=== PATIENT | male | born 1945 | race Hispanic/Latino ===

== ENCOUNTER 2021-08-08 11:10 | Inpatient (IN) | payer MEDICARE ==
[2021-08-08] VITALS (16 sets, daily range): BP systolic 119–166; BP diastolic 41–88
[~2021-08-08] VITALS: Ht 167.6 cm; Wt 57.7 kg
[~2021-08-08 11:10] MED LIST: ACET-2247 PO; AMLO-258 PO; ASCO500T10 PO; ASPI-1197 PO; ATOR20TA65 PO; CARV25TA PO; CILO100T PO; CLOP75TA32 PO; CYAN100099 PO; CYCL5.5D3 OU; DOXA4TAB3 PO; ESCI5TAB PO; FOLI0.8T22 PO; GLUC1VIA14 IJ; HUMULIN R SQ; HYDR-4154 PO; LINA5TAB PO; LOPE2CAP PO; LOSA100T58 PO; MULT-1367 PO; NITR0.4T50 SL; ONDA4TAB4 PO; PEPCID PO; PETR113O TP; POLY119P17 PO; PROT946L PO; SENN8.6T20 PO; SEVE800T27 PO; ZINC57OI4 TP
[2021-08-08] MEDS ORDERED: DEXTROSE 50%-WATER 50 ML DISP.SYRIN IV ONE (11:12)
[2021-08-08] MEDS ORDERED: INSULIN HUMULIN R 100 UNIT/ML 3ML ONE (11:13)
[2021-08-08 11:28] LABS: BASOPHILS % (AUTO) 1.1 % (0.0-5.0); EOSINOPHILS % (AUTO) 2.5 % (0.0-8.0); LYMPHOCYTES % (AUTO) 13.9 % (21.0-51.0); MEAN CORPUSCULAR HEMOGLOBIN 27.8 pg (27.0-33.0); MEAN CORPUSCULAR HGB CONC 30.3 g/dL (32.0-36.0); MEAN CORPUSCULAR VOLUME 91.7 fL (79-99); NEUTROPHILS % (AUTO) 76.1 % (40.0-77.0); PLATELET COUNT (AUTO) 69 K/uL (130-400); RED BLOOD CELL COUNT(AUTO) 3.49 MIL/uL (4.50-6.20); RED CELL DISTRIBUTION WIDTH 15.4 % (11.0-15.5); WHITE BLOOD COUNT (AUTO) 2.8 K/uL (4.8-10.8)
[2021-08-08] MEDS ORDERED: CACL 1GM SYG IVP SCH (11:30)
[2021-08-08 11:50] LABS: ALBUMIN 2.6 g/dL (3.5-5.0); BILIRUBIN,TOTAL 0.4 mg/dL (0.2-1.0); TOTAL PROTEIN, SERUM 6.8 g/dL (6.0-8.3)
[2021-08-08 11:53] LABS: CREATININE 16.5 mg/dL (0.5-1.5)
[2021-08-08 12:34] LABS: BASOPHILS % (MANUAL) 1 % (0-2); EOSINOPHILS % (MANUAL) 1 % (1-6); LYMPHOCYTES % (MANUAL) 19 % (22-44); MAN.DIFF COMMENT-IMPRESSION MANUAL DIFFERENTIAL; PLATELET MORPHOLOGY COMMENT DECREASED; SEGMENTED NEUTROPHILS % 79 % (40-70)
[2021-08-08] MEDS ORDERED: ACETAMINOPHEN 325 MG TAB PO PRN ×3 (16:30→22:00)
[2021-08-08] MEDS ORDERED: DEXTROSE 50%-WATER 50 ML DISP.SYRIN IV PRN (16:30)
[2021-08-08] MEDS ORDERED: GLUCAGON 1MG KIT 1 MG ML IM PRN ×2 (16:30→23:00)
[2021-08-08] MEDS: INSULIN R PO SS1 SQ SCH ×2 (16:30→20:07)
[2021-08-08] MEDS ORDERED: ONDANSETRON 4MG INJ IVP PRN (16:30)
[2021-08-08] MEDS: 0.9%NACL 1000ML 1,000 ML IV PRN (17:13)
[2021-08-08] MEDS ORDERED: CETI10TA57 PO (19:54)
[2021-08-08] MEDS ORDERED: AEC81 PO (19:54)
[2021-08-08] MEDS ORDERED: PANT20TA18 PO (19:54)
[2021-08-08] MEDS ORDERED: [UNRECOGNIZED DRUG - CODE] IR (19:54)
[2021-08-08] MEDS ORDERED: ACET325T51 PO (19:54)
[2021-08-08] MEDS ORDERED: FOLI0.8T22 PO (19:54)
[2021-08-08 20:08] LABS: POTASSIUM 4.9 mmol/L (3.5-5.1)
[2021-08-08 20:17] LABS: CREATININE 8.4 mg/dL (0.5-1.5)
[2021-08-08] MEDS ORDERED: NACL 23.4% (4MEQ/ML) 30ML VIAL 154 MEQ in DEXTROSE 10%-WATER 961.5 ML IV STA (21:15)
[2021-08-08 21:52] LABS: ABG BASE EXCESS -2.5 mmol/L (-2.0-3.0); ABG HCO3 21.2 mmol/L (21.0-28.0); ABG OXYGEN SATURATION 94.9 % (95.0-99.0); ABG PCO2 34 mmHg (35-48)
[2021-08-08] MEDS ORDERED: ASPIRIN 325MG TAB PO SCH (21:54)
[2021-08-08] MEDS ORDERED: NITROGLYCERIN 0.4 MG SL TAB SL PRN (22:00)
[2021-08-08] MEDS ORDERED: LACTULOSE 20 GM/30 ML UDCUP PO PRN (22:00)
[2021-08-08] MEDS ORDERED: ONDANSETRON 4MG INJ IV PRN (22:00)
[2021-08-08] MEDS ORDERED: GUAIFENESIN-DM 200/20 MG 10 ML PO PRN (22:00)
[2021-08-08] MEDS ORDERED: MAG/ALUM/SIMETH 30 ML UDCUP PO PRN (22:00)
[2021-08-08] MEDS ORDERED: IPRATROPIUM/ALBUTEROL SULFATE 3 ML SOLUTION IH PRN (22:00)
[2021-08-09] VITALS (8 sets, daily range): BP systolic 129–180; BP diastolic 47–94
[2021-08-09 04:26] LABS: BASOPHILS % (AUTO) 0.7 % (0.0-5.0); EOSINOPHILS % (AUTO) 1.8 % (0.0-8.0); HEMATOCRIT 30.4 % (42-54); LYMPHOCYTES % (AUTO) 10.3 % (21.0-51.0); MEAN CORPUSCULAR HEMOGLOBIN 27.6 pg (27.0-33.0); MEAN CORPUSCULAR HGB CONC 31.3 g/dL (32.0-36.0); MEAN CORPUSCULAR VOLUME 88.4 fL (79-99); NEUTROPHILS % (AUTO) 79.8 % (40.0-77.0); PLATELET COUNT (AUTO) 72 K/uL (130-400); RED BLOOD CELL COUNT(AUTO) 3.44 MIL/uL (4.50-6.20); RED CELL DISTRIBUTION WIDTH 14.8 % (11.0-15.5); WHITE BLOOD COUNT (AUTO) 2.7 K/uL (4.8-10.8)
[2021-08-09 05:15] LABS: AMMONIA 22 umol/L (11-32)
[2021-08-09 05:32] LABS: ALANINE AMINOTRANSFERASE 7 U/L (12-78); ALBUMIN 2.5 g/dL (3.5-5.0); ASPARTATE AMINOTRANSFERASE 24 U/L (10-37); BILIRUBIN,DIRECT 0.2 mg/dL (0.0-0.3); BILIRUBIN,TOTAL 0.4 mg/dL (0.2-1.0); CARBON DIOXIDE 22 mmol/L (21-32); CHLORIDE 101 mmol/L (101-111); GLOMERULAR FILTR. RATE CALC 6 mL/min (>60); GLUCOSE,RANDOM 147 mg/dL (70-105); PHOSPHORUS 4.3 mg/dL (2.5-4.9); POTASSIUM 5.7 mmol/L (3.5-5.1); SODIUM SERUM 136 mmol/L (136-145); THYROID STIMULATING HORMONE 4.03 uIU/mL (0.36-3.74); TOTAL PROTEIN, SERUM 6.5 g/dL (6.0-8.3)
[2021-08-09] MEDS: INSULIN R PO SS1 SQ SCH ×3 (05:42→21:00)
[2021-08-09 06:05] LABS: CREATININE 9.2 mg/dL (0.5-1.5); UREA NITROGEN, BLOOD 83 mg/dL (7-18)
[2021-08-09] MEDS: ASPIRIN 81 MG EC TAB PO SCH (08:54)
[2021-08-09] MEDS: CETIRIZINE HCL 5 MG TABLET PO SCH (08:55)
[2021-08-09] MEDS: PANTOPRAZOLE 40 MG/VIAL IVP SCH ×2 (08:55→20:30)
[2021-08-09] MEDS: HYDRALAZINE 20MG/ML VIAL IV PRN (08:56)
[2021-08-09] MEDS: Vitamin B Complex/Vit C/Folic Acid PO SCH (12:58)
[2021-08-09] MEDS ORDERED: KAYEXALATE 15GM/60ML PO ONE (13:30)
[2021-08-09] MEDS ORDERED: SODIUM CHLORIDE 3% FOR INHALATION 4 ML/AMP VIAL.NEB IH ONE ×2 (14:14→18:45)
[2021-08-09] MEDS ORDERED: KAYEXALATE 15GM/60ML ONE (15:21)
[2021-08-09] MEDS: ENOXAPARIN SODIUM 30 MG/0.3 ML SQ SCH (15:26)
[2021-08-09] MEDS: 0.9% NACL 250ML IVPB SCH (18:30)
[2021-08-09] MEDS: IPRATROPIUM/ALBUTEROL SULFATE 3 ML SOLUTION IH SCH ×2 (18:30→23:44)
[2021-08-09] MEDS ORDERED: ZOSYN 3.375GM+NS 50ML 3.38 GM in 0.9%NACL 50ML 50 ML IV SCH (18:30)
[2021-08-09] MEDS ORDERED: AZITHROMYCIN 500MG+NS 250ML 250 ML IV ONE (19:52)
[2021-08-09] MEDS: AZITHROMYCIN 500MG VIAL IVPB SCH (20:29)
[2021-08-09] MEDS: 0.9%NACL 50ML 50 ML IV SCH (20:30)
[2021-08-09] MEDS: ZOSYN 3.375GM +NS 50ML IV SCH (20:30)
[2021-08-09] MEDS: ATORVASTATIN 20 MG TABLET PO SCH (20:31)
[2021-08-10] VITALS (21 sets, daily range): BP systolic 132–180; BP diastolic 47–82
[2021-08-10 05:46] LABS: ALBUMIN 2.4 g/dL (3.5-5.0); BILIRUBIN,TOTAL 0.4 mg/dL (0.2-1.0); MAGNESIUM 2.8 mg/dL (1.80-2.40); PHOSPHORUS 4.8 mg/dL (2.5-4.9); TOTAL PROTEIN, SERUM 6.3 g/dL (6.0-8.3)
[2021-08-10] MEDS: INSULIN R PO SS1 SQ SCH ×4 (05:48→20:39)
[2021-08-10 05:53] LABS: CREATININE 10.2 mg/dL (0.5-1.5)
[2021-08-10 06:07] LABS: BASOPHILS % (AUTO) 0.7 % (0.0-5.0); EOSINOPHILS % (AUTO) 2.8 % (0.0-8.0); HEMATOCRIT 29.5 % (42-54); LYMPHOCYTES % (AUTO) 20.6 % (21.0-51.0); MEAN CORPUSCULAR HEMOGLOBIN 27.7 pg (27.0-33.0); MEAN CORPUSCULAR HGB CONC 30.8 g/dL (32.0-36.0); MEAN CORPUSCULAR VOLUME 89.9 fL (79-99); MONOCYTES % (AUTO) 8.9 % (3.0-13.0); NEUTROPHILS % (AUTO) 66.6 % (40.0-77.0); PLATELET COUNT (AUTO) 73 K/uL (130-400); RED BLOOD CELL COUNT(AUTO) 3.28 MIL/uL (4.50-6.20); RED CELL DISTRIBUTION WIDTH 15.3 % (11.0-15.5); WHITE BLOOD COUNT (AUTO) 2.8 K/uL (4.8-10.8)
[2021-08-10] MEDS: HYDRALAZINE 20MG/ML VIAL IV PRN ×2 (06:08→11:22)
[2021-08-10] MEDS: IPRATROPIUM/ALBUTEROL SULFATE 3 ML SOLUTION IH SCH ×4 (06:39→23:32)
[2021-08-10] MEDS ORDERED: SODIUM CHLORIDE 3% FOR INHALATION 4 ML/AMP VIAL.NEB IH ONE (06:41)
[2021-08-10] MEDS: 0.9%NACL 1000ML 1,000 ML IV PRN ×2 (07:40→07:41)
[2021-08-10 07:50] LABS: EOSINOPHILS % (MANUAL) 2 % (1-6); LYMPHOCYTES % (MANUAL) 22 % (22-44); MAN.DIFF COMMENT-IMPRESSION MANUAL DIFFERENTIAL; MONOCYTES % (MANUAL) 10 % (2-9); SEGMENTED NEUTROPHILS % 66 % (40-70)
[2021-08-10 07:51] LABS: PLATELET MORPHOLOGY COMMENT DECREASED
[2021-08-10 08:15] LABS: HEPATITIS Bs ANTIGEN SCREEN P Negative (Negative)
[2021-08-10] MEDS: ZOSYN 3.375GM +NS 50ML IV SCH ×2 (08:29→20:37)
[2021-08-10] MEDS: PANTOPRAZOLE 40 MG/VIAL IVP SCH ×2 (08:30→20:37)
[2021-08-10] MEDS: ASPIRIN 81 MG EC TAB PO SCH (08:30)
[2021-08-10] MEDS: CETIRIZINE HCL 5 MG TABLET PO SCH (08:30)
[2021-08-10] MEDS: 0.9%NACL 50ML 50 ML IV SCH ×2 (08:30→20:37)
[2021-08-10] MEDS: Vitamin B Complex/Vit C/Folic Acid PO SCH (08:30)
[2021-08-10] MEDS: ENOXAPARIN SODIUM 30 MG/0.3 ML SQ SCH (08:34)
[2021-08-10] MEDS ORDERED: Vitamin B Complex/Vit C/Folic Acid PO SCH (09:00)
[2021-08-10] MEDS ORDERED: AZITHROMYCIN 500MG+NS 250ML 250 ML IV ONE (18:57)
[2021-08-10] MEDS: AZITHROMYCIN 500MG VIAL IVPB SCH (19:13)
[2021-08-10] MEDS: ATORVASTATIN 20 MG TABLET PO SCH (20:37)
[2021-08-11] VITALS (7 sets, daily range): BP systolic 119–176; BP diastolic 36–66
[2021-08-11] MEDS: DEXTROSE 50%-WATER 50 ML DISP.SYRIN IV PRN ×2 (00:57→01:37)
[2021-08-11 05:40] LABS: HEMATOCRIT 31.8 % (42-54); MEAN CORPUSCULAR HEMOGLOBIN 28.2 pg (27.0-33.0); MEAN CORPUSCULAR HGB CONC 30.8 g/dL (32.0-36.0); MEAN CORPUSCULAR VOLUME 91.4 fL (79-99); RED BLOOD CELL COUNT(AUTO) 3.48 MIL/uL (4.50-6.20); RED CELL DISTRIBUTION WIDTH 15.2 % (11.0-15.5); WHITE BLOOD COUNT (AUTO) 3.3 K/uL (4.8-10.8)
[2021-08-11 05:57] LABS: CREATININE 7.3 mg/dL (0.5-1.5); POTASSIUM 4.6 mmol/L (3.5-5.1)
[2021-08-11] MEDS: IPRATROPIUM/ALBUTEROL SULFATE 3 ML SOLUTION IH SCH ×4 (06:24→23:36)
[2021-08-11] MEDS: INSULIN R PO SS1 SQ SCH ×4 (07:30→21:00)
[2021-08-11] MEDS: Vitamin B Complex/Vit C/Folic Acid PO SCH (08:52)
[2021-08-11] MEDS: ZOSYN 3.375GM +NS 50ML IV SCH ×2 (08:52→21:48)
[2021-08-11] MEDS: 0.9%NACL 50ML 50 ML IV SCH ×2 (08:52→21:48)
[2021-08-11] MEDS: AMLODIPINE 5 MG TAB PO SCH (08:52)
[2021-08-11] MEDS: ASPIRIN 81 MG EC TAB PO SCH (08:52)
[2021-08-11] MEDS: CETIRIZINE HCL 5 MG TABLET PO SCH (08:52)
[2021-08-11] MEDS: PANTOPRAZOLE 40 MG/VIAL IVP SCH ×2 (08:52→21:48)
[2021-08-11] MEDS: ENOXAPARIN SODIUM 30 MG/0.3 ML SQ SCH (08:53)
[2021-08-11] MEDS ORDERED: AZITHROMYCIN 500MG+NS 250ML 250 ML IV ONE (18:04)
[2021-08-11] MEDS: 0.9% NACL 250ML IVPB SCH (18:10)
[2021-08-11] MEDS: AZITHROMYCIN 500MG VIAL IVPB SCH (18:30)
[2021-08-11] MEDS: ATORVASTATIN 20 MG TABLET PO SCH (21:48)
[2021-08-12 04:00] VITALS: BP 168/72
[2021-08-12 05:36] LABS: BASOPHILS % (AUTO) 0.6 % (0.0-5.0); EOSINOPHILS % (AUTO) 3.5 % (0.0-8.0); HEMATOCRIT 26.5 % (42-54); LYMPHOCYTES % (AUTO) 14.3 % (21.0-51.0); MEAN CORPUSCULAR HGB CONC 30.2 g/dL (32.0-36.0); MEAN CORPUSCULAR VOLUME 92.7 fL (79-99); MONOCYTES % (AUTO) 6.4 % (3.0-13.0); NEUTROPHILS % (AUTO) 74.6 % (40.0-77.0); PLATELET COUNT (AUTO) 60 K/uL (130-400); RED BLOOD CELL COUNT(AUTO) 2.86 MIL/uL (4.50-6.20); RED CELL DISTRIBUTION WIDTH 15.3 % (11.0-15.5); WHITE BLOOD COUNT (AUTO) 3.4 K/uL (4.8-10.8)
[2021-08-12] MEDS: INSULIN R PO SS1 SQ SCH ×4 (05:39→20:16)
[2021-08-12 06:47] LABS: CREATININE 8.2 mg/dL (0.5-1.5)
[2021-08-12] MEDS: IPRATROPIUM/ALBUTEROL SULFATE 3 ML SOLUTION IH SCH ×4 (07:12→23:17)
[2021-08-12 08:00] VITALS: BP 173/60
[2021-08-12] MEDS ORDERED: PANTOPRAZOLE 40 MG TAB DR ONE (08:28)
[2021-08-12] MEDS: PANTOPRAZOLE 40 MG/VIAL IVP SCH ×2 (08:32→20:15)
[2021-08-12] MEDS: ZOSYN 3.375GM +NS 50ML IV SCH ×2 (08:34→20:15)
[2021-08-12] MEDS: ASPIRIN 81 MG EC TAB PO SCH (08:35)
[2021-08-12] MEDS: CETIRIZINE HCL 5 MG TABLET PO SCH (08:35)
[2021-08-12] MEDS: 0.9%NACL 50ML 50 ML IV SCH ×2 (08:35→20:14)
[2021-08-12] MEDS: Vitamin B Complex/Vit C/Folic Acid PO SCH (08:35)
[2021-08-12] MEDS: AMLODIPINE 5 MG TAB PO SCH (08:35)
[2021-08-12] MEDS: ENOXAPARIN SODIUM 30 MG/0.3 ML SQ SCH (08:37)
[2021-08-12 11:51] VITALS: BP 167/56
[2021-08-12 16:00] VITALS: BP 165/54
[2021-08-12] MEDS ORDERED: AZITHROMYCIN 500MG+NS 250ML IV SCH (19:00)
[2021-08-12 19:55] VITALS: BP 157/54
[2021-08-12] MEDS: 0.9% NACL 250ML IVPB SCH ×2 (20:13→20:17)
[2021-08-12] MEDS: ATORVASTATIN 20 MG TABLET PO SCH (20:15)
[2021-08-13] VITALS (20 sets, daily range): BP systolic 134–167; BP diastolic 48–63
[2021-08-13 04:53] LABS: HEMATOCRIT 25.3 % (42-54); MEAN CORPUSCULAR HEMOGLOBIN 27.7 pg (27.0-33.0); MEAN CORPUSCULAR HGB CONC 30.4 g/dL (32.0-36.0); PLATELET COUNT (AUTO) 60 K/uL (130-400); RED BLOOD CELL COUNT(AUTO) 2.78 MIL/uL (4.50-6.20); RED CELL DISTRIBUTION WIDTH 15.3 % (11.0-15.5); WHITE BLOOD COUNT (AUTO) 3.8 K/uL (4.8-10.8)
[2021-08-13 05:13] LABS: POTASSIUM 5.5 mmol/L (3.5-5.1)
[2021-08-13] MEDS: HYDRALAZINE 20MG/ML VIAL IV PRN ×2 (05:19→23:45)
[2021-08-13 05:24] LABS: CREATININE 9.5 mg/dL (0.5-1.5)
[2021-08-13 05:55] LABS: BAND NEUTROPHILS % (MANUAL) 1 % (0-2); EOSINOPHILS % (MANUAL) 3 % (1-6); LYMPHOCYTES % (MANUAL) 10 % (22-44); MAN.DIFF COMMENT-IMPRESSION MANUAL DIFFERENTIAL; MONOCYTES % (MANUAL) 5 % (2-9); SEGMENTED NEUTROPHILS % 81 % (40-70)
[2021-08-13 05:56] LABS: PLATELET MORPHOLOGY COMMENT DECREASED
[2021-08-13] MEDS: INSULIN R PO SS1 SQ SCH ×4 (06:20→20:24)
[2021-08-13] MEDS: IPRATROPIUM/ALBUTEROL SULFATE 3 ML SOLUTION IH SCH ×4 (06:43→23:52)
[2021-08-13] MEDS: PANTOPRAZOLE 40 MG/VIAL IVP SCH ×2 (08:50→19:42)
[2021-08-13] MEDS: 0.9%NACL 50ML 50 ML IV SCH ×2 (08:50→19:42)
[2021-08-13] MEDS: ZOSYN 3.375GM +NS 50ML IV SCH ×2 (08:50→19:42)
[2021-08-13] MEDS: ASPIRIN 81 MG EC TAB PO SCH (08:51)
[2021-08-13] MEDS: CETIRIZINE HCL 5 MG TABLET PO SCH (08:52)
[2021-08-13] MEDS: Vitamin B Complex/Vit C/Folic Acid PO SCH (08:52)
[2021-08-13] MEDS: 0.9%NACL 1000ML 1,000 ML IV PRN (08:53)
[2021-08-13] MEDS: ENOXAPARIN SODIUM 30 MG/0.3 ML SQ SCH (08:53)
[2021-08-13] MEDS: ATORVASTATIN 20 MG TABLET PO SCH (19:42)
[2021-08-13] MEDS: DEXTROSE 50%-WATER 50 ML DISP.SYRIN IV PRN (20:24)
[2021-08-14 03:43] VITALS: BP 149/46
[2021-08-14 04:37] LABS: HEMATOCRIT 26.3 % (42-54); MEAN CORPUSCULAR HEMOGLOBIN 28.3 pg (27.0-33.0); MEAN CORPUSCULAR HGB CONC 30.4 g/dL (32.0-36.0); MEAN CORPUSCULAR VOLUME 92.9 fL (79-99); PLATELET COUNT (AUTO) 53 K/uL (130-400); RED BLOOD CELL COUNT(AUTO) 2.83 MIL/uL (4.50-6.20); RED CELL DISTRIBUTION WIDTH 15.4 % (11.0-15.5); WHITE BLOOD COUNT (AUTO) 3.4 K/uL (4.8-10.8)
[2021-08-14 04:57] LABS: CREATININE 5.8 mg/dL (0.5-1.5); POTASSIUM 4.5 mmol/L (3.5-5.1)
[2021-08-14] MEDS: INSULIN R PO SS1 SQ SCH ×2 (05:44→11:30)
[2021-08-14 05:46] LABS: EOSINOPHILS % (MANUAL) 2 % (1-6); LYMPHOCYTES % (MANUAL) 18 % (22-44); MAN.DIFF COMMENT-IMPRESSION MANUAL DIFFERENTIAL; MONOCYTES % (MANUAL) 5 % (2-9); PLATELET MORPHOLOGY COMMENT DECREASED; SEGMENTED NEUTROPHILS % 75 % (40-70)
[2021-08-14] MEDS: IPRATROPIUM/ALBUTEROL SULFATE 3 ML SOLUTION IH SCH ×2 (06:25→11:20)
[2021-08-14 08:03] VITALS: BP 129/76
[2021-08-14] MEDS: 0.9%NACL 50ML 50 ML IV SCH (10:18)
[2021-08-14] MEDS: ZOSYN 3.375GM +NS 50ML IV SCH (10:18)
[2021-08-14] MEDS: AMLODIPINE 5 MG TAB PO SCH (10:19)
[2021-08-14] MEDS: CETIRIZINE HCL 5 MG TABLET PO SCH (10:19)
[2021-08-14] MEDS: Vitamin B Complex/Vit C/Folic Acid PO SCH (10:20)
[2021-08-14] MEDS: ENOXAPARIN SODIUM 30 MG/0.3 ML SQ SCH (10:20)
[2021-08-14] MEDS: PANTOPRAZOLE 40 MG/VIAL IVP SCH (10:20)
[2021-08-14] MEDS: ASPIRIN 81 MG EC TAB PO SCH (10:20)
[2021-08-14 11:24] VITALS: BP 148/61
[2021-08-14] MEDS ORDERED: CALCIUM GLUC 1GM/10ML VIAL IV SCH (12:30)
[2021-08-14] MEDS ORDERED: CALCIUM GLUC 1GM 1 GM in 0.9%NACL 100ML 100 ML IV SCH (13:00)
[2021-08-14 15:43] VITALS: BP 145/55
== END 2021-08-14 16:05 | DRG 280 ==
LOC: EDH 11:10 → OBSVTOIN 14:10 → EDHIP 14:10 → 3BH 18:50 → 4CH 22:45
PROVIDERS: ADMIT Internal Medicine Infectious Disease; ATTEND Internal Medicine Infectious Disease
PROC: 5A1D70Z Performance of Urinary Filtration, Intermittent, Less than 6 Hours Per Day (ICD-10-PCS; principal; 2021-08-08)
PROC: 5A1D70Z Performance of Urinary Filtration, Intermittent, Less than 6 Hours Per Day (ICD-10-PCS; 2021-08-10)
PROC: 5A1D70Z Performance of Urinary Filtration, Intermittent, Less than 6 Hours Per Day (ICD-10-PCS; 2021-08-14)
DX: I21.9 Acute myocardial infarction, unspecified (principal); G93.41 Metabolic encephalopathy; N18.6 End stage renal disease; J18.9 Pneumonia, unspecified organism; I13.2 Hypertensive heart and chronic kidney disease with heart failure and with stage 5 chronic kidney disease, or end stage renal disease; D61.818 Other pancytopenia; D84.9 Immunodeficiency, unspecified; J98.11 Atelectasis; M86.9 Osteomyelitis, unspecified; E87.5 Hyperkalemia; Z99.2 Dependence on renal dialysis; I50.9 Heart failure, unspecified; D63.8 Anemia in other chronic diseases classified elsewhere; E11.22 Type 2 diabetes mellitus with diabetic chronic kidney disease; E11.51 Type 2 diabetes mellitus with diabetic peripheral angiopathy without gangrene; E11.69 Type 2 diabetes mellitus with other specified complication; E66.3 Overweight; E78.00 Pure hypercholesterolemia, unspecified; E78.5 Hyperlipidemia, unspecified; F32.A Depression, unspecified; I44.0 Atrioventricular block, first degree; I44.7 Left bundle-branch block, unspecified; K21.9 Gastro-esophageal reflux disease without esophagitis; R77.8 Other specified abnormalities of plasma proteins; K80.70 Calculus of gallbladder and bile duct without cholecystitis without obstruction; Z51.5 Encounter for palliative care; Z79.82 Long term (current) use of aspirin; Z87.01 Personal history of pneumonia (recurrent); Z89.511 Acquired absence of right leg below knee; Z91.15 Patient's noncompliance with renal dialysis; Z91.19 Patient's noncompliance with other medical treatment and regimen; Z83.3 Family history of diabetes mellitus; Z20.822 Contact with and (suspected) exposure to COVID-19
CPT/HCPCS: 36415; 36600; 71045; 71250; 80048; 80053; 80076; 82140; 82550; 82607; 82746; 82803; 82948; 83605; 83735; 83874; 83880; 84100; 84132; 84443; 84484; 85025; 85027; 86704; 86706; 87040; 87340; 87635; 87804; 90935; 93005; 93306; 93356; 94640; C9113; G0378; J0360; J0456; J0610; J1650; J1815; J2543; J3490; J7030; J7050; J7070; J7131